=== PATIENT | male | born 1975 | race Caucasian/White ===

== ENCOUNTER 2023-12-09 13:59 | Emergency (ER) | payer OTHER ==
[2023-12-09 14:58] LABS: Absolute Basophils 0.1 K/uL (0-0.5); Absolute Eosinophils 0.2 K/uL (0-0.5); Absolute Lymphocytes (CBC) 3.1 K/uL (0.7-4.9); Absolute Monocytes 1.2 K/uL (0.1-1.3); Absolute Neutrophil 5.5 K/uL (1.8-8.0); Basophils % 0.7 % (0-1.3); Eosinophils % 1.7 % (0-4.4); Hematocrit 44.5 % (39.6-49.0); Hemoglobin 14.9 g/dL (13.6-17.9); Lymphocytes % 30.8 % (15.3-44.8); MCH 28.7 pg (27.0-35.0); MCHC 33.4 g/dL (32.0-36.0); MCV 85.9 fL (80-100); MPV 7.6 fL (7.6-11.3); Monocytes % 11.6 % (3.3-12.3); Neutrophils % 55.2 % (41.7-73.7); Platelets 312 thou/uL (152-406); RBC Red Blood Cell Count 5.17 M/uL (4.33-5.43); Red Cell Distribution Width 14.7 % (12.1-15.2)
[2023-12-09 15:23] LABS: Albumin 3.3 g/dL (3.4-5.0); Albumin/Globulin Ratio 0.8 (1.1-1.8); Bilirubin Total 0.4 mg/dL (0.2-1.0); Globulin 4.3 g/dL (2.3-3.5); Protein, Total 7.6 g/dL (6.4-8.2)
--- NOTE | 2023-12-09 16:06 | RAD REPORT ---
EXAM: XR Knee Left 3 View HISTORY: [facility] MAIN PAIN Bed Name: [id number] COMPARISON: None TECHNIQUE: 3 views of the left knee were obtained. FINDINGS: Moderate knee effusion is seen. There is no evidence of acute fracture or dislocation. No significant degenerative changes are seen. No soft tissue swelling or other soft tissue abnormality is present. IMPRESSION: No evidence of acute osseous abnormality. Moderate knee joint effusion.
[2023-12-09] MEDS ORDERED: HYDROCODONE/APAP 10/325 TAB ONE (16:16)
[2023-12-09] MEDS ORDERED: KETOROLAC 30 MG/ML INJ ONE (16:16)
--- NOTE | 2023-12-09 16:44 | ER ---
Nurse's Notes [facility] Name: Edmond Briscoe Age: 48 yrs Sex: Male : 1975 Arrival Date: 12/09/2023 Time: 13:59 Bed 6 Private MD: Diagnosis: Pain in left knee Presentation: 12/08 14:32 Chief complaint: Patient states: can't put weight on left leg, has pain to left knee iw since Friday , denies injury, not swollen, hx of gout. Coronavirus screen: At this time, the client does not indicate any symptoms associated with coronavirus-19. Ebola Screen: No symptoms or risks identified at this time. Initial Sepsis Screen: Does the patient meet any 2 criteria? No. Patient's initial sepsis screen is negative. Does the patient have a suspected source of infection? No. Patient's initial sepsis screen is negative. Risk Assessment: Do you want to hurt yourself or someone else? Patient reports no desire to harm self or others. Onset of symptoms was December 05, 2023. 14:32 Method Of Arrival: Wheelchair iw 14:32 Acuity: DENICE 3 iw Historical: - Allergies: 14:34 No Known Allergies; iw - Home Meds: 14:34 None [Active]; iw - PMHx: 14:34 Gout; iw - PSHx: 14:34 knee; iw - Immunization history:: Adult Immunizations not up to date. - Infectious Disease History:: Denies. - Social history:: Smoking status: Patient denies any tobacco usage or history of. - Family history:: not pertinent. Screenin:49 [facility] ED Fall Risk Assessment (Adult) History of falling in the last 3 months, mb9 including since admission No falls in past 3 months (0 pts) Confusion or Disorientation No (0 pts) Intoxicated or Sedated No (0 pts) Impaired Gait No (0 pts) Mobility Assist Device Used No (0 pt) Altered Elimination No (0 pt) Score/Fall Risk Level 0 - 2 = Low Risk Oriented to surroundings, Maintained a safe environment, Educated pt \T\ family on fall prevention, incl call for assistance when getting out of bed. Abuse screen: Denies threats or abuse. Nutritional screening: No deficits noted. Tuberculosis screening: No symptoms or risk factors identified. Assessment: 14:51 General: Appears in no apparent distress. Behavior is calm, cooperative. Pain: mb9 Complains of pain in left patella Pain does not radiate. Pain currently is 0 out of 10 on a pain scale. Quality of pain is described as throbbing, Pain began suddenly, Is intermittent, Aggravated by weight bearing. Neuro: Level of Consciousness is awake, alert, obeys commands, Oriented to person, place, time, situation, Appropriate for age. Cardiovascular: Patient's skin is warm and dry. Respiratory: Airway is patent Respiratory effort is even, unlabored, Respiratory pattern is regular, symmetrical. GI: No signs and/or symptoms were reported involving the gastrointestinal system. : No signs and/or symptoms were reported regarding the genitourinary system. EENT: No signs and/or symptoms were reported regarding the EENT system. Derm: Skin is pink, warm \T\ dry. Musculoskeletal: Range of motion: limited in left knee Swelling present in left leg. 16:00 Reassessment: No changes from previously documented assessment. Patient and/or family mb9 updated on plan of care and expected duration. Pain level reassessed. Patient is alert, oriented x 3, equal unlabored respirations, skin warm/dry/pink. Vital Signs: 14:32 BP 99 / 76; Pulse 93; Resp 18; Temp 97.6; Pulse Ox 99% ; Weight 108.86 kg; Height 6 ft. iw 3 in. ; Pain 10/10; 16:50 BP 115 / 94; Pulse 88; Resp 16; Pulse Ox 99% on R/A; mb9 14:32 Body Mass Index 30.00 (108.86 kg, 190.5 cm) iw 14:32 Pain Scale: Adult iw ED Course: 14:04 Patient arrived in ED. im 14:09 Kenneth Carlson MD is Attending Physician. rt 14:34 Triage completed. iw 14:34 Arm band placed on. iw 14:43 Niurka Gudino RN is Primary Nurse. mb9 14:49 Placed in gown. Bed in low position. Call light in reach. Side rails up X 1. Provided mb9 Education on: press call light if needing anything. Client placed on continuous cardiac and pulse oximetry monitoring. NIBP monitoring applied. 15:46 Knee Left 3 View XRAY In Process Unspecified. EDMS 15:55 No provider procedures requiring assistance completed. mb9 16:50 IV discontinued, intact, bleeding controlled, No redness/swelling at site. Pressure mb9 dressing applied. Administered Medications: 16:22 Drug: [place] PO 10 mg-325 mg 1 tabs PO once Route: PO; cm10 16:49 Follow up: Response: No adverse reaction mb9 16:22 Drug: Ketorolac IM 30 mg IM once {Note: Right AC.} Route: IM; Site: Other; 10 16:50 Follow up: Response: No adverse reaction mb9 Medication: 14:49 VIS not applicable for this client. mb9 Outcome: 16:43 Discharge ordered by . rt 16:53 Discharged to home ambulatory, Pt waiting for ride in [place]. cm10 16:53 Condition: stable 16:53 Discharge instructions given to patient, Instructed on discharge instructions, follow up and referral plans. medication usage, Demonstrated understanding of instructions, follow-up care, medications, Prescriptions given X 2, 16:54 Patient left the ED. cm10 Signatures: Dispatcher [employer] EDLorna Muniz RN RN iw Wilkerson, Mary Beth RN RN Kenneth Rogers MD MD rt Maria Antonia Cai Clarissa, KATHY RN cm10
--- NOTE | 2023-12-09 16:44 | EDPHYS ---
Physician Documentation [facility] Name: Edmond Briscoe Age: 48 yrs Sex: Male : 1975 Arrival Date: 12/09/2023 Time: 13:59 Bed 6 Private MD: ED Physician Kenneth Carlson HPI: 12/08 15:34 This 48 yrs old Male presents to ER via Wheelchair with complaints of Knee Pain - left. rt 15:34 Patient presents to the ED with a left knee pain since Hernandez states he has history of rt gout but is no swelling difficulties with gout. States it hurts to bend the knee, difficulty putting weight on it. Denies other acute complaints, symptoms are moderate severity, no other aggravating alleviating factors.. Patient denies any trauma.. Historical: - Allergies: 14:34 No Known Allergies; iw - Home Meds: 14:34 None [Active]; iw - PMHx: 14:34 Gout; iw - PSHx: 14:34 knee; iw - Immunization history:: Adult Immunizations not up to date. - Infectious Disease History:: Denies. - Social history:: Smoking status: Patient denies any tobacco usage or history of. - Family history:: not pertinent. ROS: 15:34 Constitutional: Negative for fever, chills, and weight loss, Cardiovascular: Negative rt for chest pain, palpitations, and edema, Respiratory: Negative for shortness of breath, cough, wheezing, and pleuritic chest pain, Abdomen/GI: Negative for abdominal pain, nausea, vomiting, diarrhea, and constipation, Skin: Negative for injury, rash, and discoloration, 15:34 MS/extremity: Positive for pain, Negative for injury or acute deformity, Exam: 15:34 Constitutional: This is a well developed, well nourished patient who is awake, alert, rt and in no acute distress. Head/Face: Normocephalic, atraumatic. Chest/axilla: Normal chest wall appearance and motion. Nontender with no deformity. No lesions are appreciated. Cardiovascular: Regular rate and rhythm with a normal S1 and S2. No gallops, murmurs, or rubs. Normal PMI, no JVD. No pulse deficits. Respiratory: Lungs have equal breath sounds bilaterally, clear to auscultation and percussion. No rales, rhonchi or wheezes noted. No increased work of breathing, no retractions or nasal flaring. Abdomen/GI: Soft, non-tender, with normal bowel sounds. No distension or tympany. No guarding or rebound. No evidence of tenderness throughout. 15:34 Musculoskeletal/extremity: Mild swelling to the left knee, mild tenderness diffusely, no overlying erythema, skin changes. Vital Signs: 14:32 BP 99 / 76; Pulse 93; Resp 18; Temp 97.6; Pulse Ox 99% ; Weight 108.86 kg; Height 6 ft. iw 3 in. ; Pain 10/10; 16:50 BP 115 / 94; Pulse 88; Resp 16; Pulse Ox 99% on R/A; mb9 14:32 Body Mass Index 30.00 (108.86 kg, 190.5 cm) iw 14:32 Pain Scale: Adult iw MDM: 14:37 Medical Screening Exam initiated rt 17:52 Differential Diagnosis Gout, musculoskeletal pain, septic arthritis. Data reviewed: rt vital signs, nurses notes, lab test result(s), radiologic studies. I considered the following discharge prescriptions or medication management in the emergency department Medications were administered in the Emergency Department. See MAR. Independent interpretation of the following test(s) in the Emergency Department X-Ray: My interpretation is No fracture seen on my interpretation of x-ray images. Test considered but Not performed: Other Details Patient has no leukocytosis, fever. The skin is not red, it is not warm to the touch. Clinically I have a low suspicion for septic brightest. The patient does have an effusion on the x-ray. I informed patient of signs or symptoms of be concerning for septic arthritis but told him that the only way to rule it out completely would be to perform arthrocentesis. He states that he does not wish to have this be performed at this time, believe this is reasonable. I discussed with the patient strict return precautions for signs concerning of a septic arthritis.. Counseling: I had a detailed discussion with the patient and/or guardian regarding the historical points, exam findings, and any diagnostic results supporting the discharge/admit diagnosis, lab results, radiology results, the need for outpatient follow up, to return to the emergency department if symptoms worsen or persist or if there are any questions or concerns that arise at home. Response to treatment: the patient's symptoms have markedly improved after treatment. 12/08 14:38 Order name: CBC with Diff; Complete Time: 15:24 rt 12/08 14:38 Order name: CMP; Complete Time: 15:24 rt 12/08 14:38 Order name: Uric Acid; Complete Time: 15:24 rt 12/08 14:38 Order name: Knee Left 3 View XRAY; Complete Time: 16:10 rt Administered Medications: 16:22 Drug: [place] PO 10 mg-325 mg 1 tabs PO once Route: PO; 10 16:49 Follow up: Response: No adverse reaction mb9 16:22 Drug: Ketorolac IM 30 mg IM once {Note: Right AC.} Route: IM; Site: Other; 10 16:50 Follow up: Response: No adverse reaction mb9 Disposition Summary: 12/09/23 16:43 Discharge Ordered Notes: Location: Home rt Problem: new rt Symptoms: have improved rt Condition: Stable rt Diagnosis - Pain in left knee rt Followup: rt - With: Private Physician - When: 2 - 3 days - Reason: Discharge Instructions: - Discharge Summary Sheet rt - Acute Knee Pain, Adult rt Forms: - Medication Reconciliation Form rt - Antibiotic Education rt - Prescription Opioid Use rt - Patient Portal Instructions rt - Leadership Thank You Letter rt Prescriptions: - Tramadol 50 mg Oral tablet - take 1 tablet ORAL route every 8 hours as needed; 15 tablet; Refills: 0, rt Product Selection Permitted - Prednisone 20 mg Oral Tablet - take 2 tablets ORAL route once daily for 5 days; 10 tablet; Refills: 0, Product rt Selection Permitted Signatures: Dispatcher [employer] Lorna Valles RN RN iw [place], Ryan, MD MD rt Patsy Mott RN RN cm10 Niurka Gudino RN mb9
[2023-12-09 16:58] VITALS: TEMP 97.6; O2SAT 99
[2023-12-09 16:59] VITALS: BP 115/94
== END 2023-12-09 16:54 | disposition home or self-care (01) ==
LOC: ER 13:59
DX: M25.562 Pain in left knee (principal)
CPT/HCPCS: 36415; 80053; 84550; 85025